=== PATIENT | female | born 1995 | race Caucasian/White ===

== ENCOUNTER 2022-07-24 19:01 | Inpatient (IN) | payer OTHER, BC ==
[2022-07-24] MEDS ORDERED: Ondansetron 4 MG/2 ML SDV IVPUSH ONE (19:31)
[2022-07-24] MEDS ORDERED: HYDROmorphone 0.5 MG/0.5 ML Syringe IVPUSH ONE ×4 (19:31→23:46)
[2022-07-25] MEDS ORDERED: Ropivacaine 0.2% PF 2 MG/ML 20 ML SDV ONE
[2022-07-25] MEDS ORDERED: HYDROmorphone 0.5 MG/0.5 ML Syringe IVPUSH ONE (00:39)
[2022-07-25] MEDS ORDERED: Ondansetron 4 MG/2 ML SDV IVPUSH ONE (00:48)
[2022-07-25] MEDS ORDERED: Acetaminophen/HYDROcodone 325-5 MG Tab PO ONE (01:22)
[2022-07-25] MEDS ORDERED: oxyCODONE 5 MG Tab PO PRN (02:37)
[2022-07-25] MEDS ORDERED: Calcium Carbonate 500 MG Tab.Chew PO PRN (02:38)
[2022-07-25] MEDS: Lactated Ringers 1,000 ML IV SCH ×2 (04:00→05:13)
[2022-07-25] MEDS ORDERED: Sodium Chloride 0.9% 10 ML Syringe FLUSH PRN (04:02)
[2022-07-25] MEDS ORDERED: Nalbuphine HCl 10 MG/ 1ML Amp IVPUSH PRN (04:02)
[2022-07-25] MEDS ORDERED: Oxytocin/Lactated Ringers 10 UNIT/1,000 ML BAG IV SCH ×2 (04:02→07:38)
[2022-07-25] MEDS ORDERED: ePHEDrine 50 MG/ML SDV IVPUSH PRN (04:12)
[2022-07-25] MEDS ORDERED: fentaNYL 100 MCG/2 ML SDV EPIDUR PRN (04:12)
[2022-07-25] MEDS ORDERED: diphenhydrAMINE 50 MG/ML SDV IVPUSH PRN (04:12)
[2022-07-25] MEDS ORDERED: Bupivacaine/fentaNYL/NS 100 ML Bag EPIDUR PRN (04:12)
[2022-07-25] MEDS ORDERED: Ondansetron 4 MG Tab.DIS PO PRN ×2 (05:00)
[2022-07-25] MEDS ORDERED: Acetaminophen/HYDROcodone 325-5 MG Tab PO PRN (05:30)
[2022-07-25] MEDS ORDERED: Hydrocortisone Acetate 25 MG Supp RECTAL PRN (07:38)
[2022-07-25] MEDS ORDERED: Benzocaine/Menthol 20%-0.5% Spray 78 GM Cannister TOP PRN (07:38)
[2022-07-25] MEDS ORDERED: Magnesium Hydroxide 400 MG/5 ML Susp 30 ML Cup PO PRN (07:38)
[2022-07-25] MEDS ORDERED: Witch Hazel Medicated Pads 40/Jar TOP PRN (07:38)
[2022-07-25] MEDS ORDERED: Sodium Chloride 0.9% 10 ML Syringe FLUSH SCH (09:00)
[2022-07-25] MEDS: Docusate Sodium 100 MG Cap PO PRN ×2 (09:18→21:08)
[2022-07-25] MEDS: Ibuprofen 600 MG Tab PO PRN ×3 (09:18→21:05)
[2022-07-25] MEDS: Prenatal Multivitamin with Calcium/Folic Acid/Iron Tab PO SCH (12:09)
[2022-07-25] MEDS: Acetaminophen/HYDROcodone 325-5 MG Tab PO PRN ×2 (12:10→18:31)
[2022-07-26] MEDS: Acetaminophen/HYDROcodone 325-5 MG Tab PO PRN ×4 (00:01→18:14)
[2022-07-26] MEDS: Ibuprofen 600 MG Tab PO PRN ×4 (03:42→21:55)
[2022-07-26] MEDS: Prenatal Multivitamin with Calcium/Folic Acid/Iron Tab PO SCH (09:44)
[2022-07-26] MEDS: Docusate Sodium 100 MG Cap PO PRN ×2 (09:46→21:55)
[2022-07-27] MEDS: Acetaminophen/HYDROcodone 325-5 MG Tab PO PRN ×3 (00:58→13:07)
[2022-07-27] MEDS: Ibuprofen 600 MG Tab PO PRN ×2 (04:00→10:22)
[2022-07-27] MEDS: Prenatal Multivitamin with Calcium/Folic Acid/Iron Tab PO SCH (10:23)
[2022-07-27] MEDS: Docusate Sodium 100 MG Cap PO PRN (10:23)
== END 2022-07-27 14:00 | disposition home or self-care (01) | DRG 560 ==
LOC: JD.ED 19:01 → JD.OB 07-25 02:10 → JD.ED 07-25 02:10 → JD.OB 07-25 02:19 → OBSVTOIN 07-25 07:20
PROVIDERS: ADMIT Obstetrics & Gynecology; ATTEND Obstetrics & Gynecology
PROC: 10E0XZZ Delivery of Products of Conception, External Approach (ICD-10-PCS; principal; 2022-07-25)
PROC: 10907ZC Drainage of Amniotic Fluid, Therapeutic from Products of Conception, Via Natural or Artificial Opening (ICD-10-PCS; 2022-07-25)
PROC: 0HQ9XZZ Repair Perineum Skin, External Approach (ICD-10-PCS; 2022-07-25)
PROC: 3E0R3BZ Introduction of Anesthetic Agent into Spinal Canal, Percutaneous Approach (ICD-10-PCS; 2022-07-25)
DX: O60.14X0 Preterm labor third trimester with preterm delivery third trimester, not applicable or unspecified (principal); Z3A.36 36 weeks gestation of pregnancy; Z37.0 Single live birth; O99.892 Other specified diseases and conditions complicating childbirth; O70.0 First degree perineal laceration during delivery; S22.059A Unspecified fracture of T5-T6 vertebra, initial encounter for closed fracture; S22.069A Unspecified fracture of T7-T8 vertebra, initial encounter for closed fracture
CPT/HCPCS: 01967; 36415; 51702; 59025; 59409; 72125; 72125-26; 72128; 72128-26; 72131; 72131-26; 85025; 86592; 86803; 86850; 86870; 86900; 86901; 96374; 96375; 96376; 99284; 99285-25; A9270-GY; J1170; J2405; J2790; J2795; J7120

== ENCOUNTER 2025-01-07 20:02 | Inpatient (IN) | payer BC ==
[2025-01-07] MEDS ORDERED: Sodium Chloride 0.9% 10 ML Syringe FLUSH PRN (20:51)
[2025-01-07] MEDS ORDERED: Lidocaine 1% 50 ML MDV INJECT PRN (20:51)
[2025-01-07] MEDS ORDERED: Nalbuphine 10 MG/1 ML Vial IVPUSH PRN (20:51)
[2025-01-07 21:11] LABS: BASOPHILS ABSOLUTE AUTO 0.1 K/mm3 (0.0-0.2); BASOPHILS PERCENT AUTO 0.4 % (0.0-1.0); EOSINOPHILS ABSOLUTE AUTO 0.1 K/mm3 (0.0-0.4); EOSINOPHILS PERCENT AUTO 0.4 % (0.0-6.0); HEMATOCRIT 33.7 % (37.0-47.0); HEMOGLOBIN 10.7 gm/dl (12.0-16.0); IMMATURE GRAN PERCENT AUTO 0.9 % (0.0-0.4); LYMPHOCYTES ABSOLUTE AUTO 3.7 K/mm3 (1.0-4.8); LYMPHOCYTES PERCENT AUTO 16.1 % (24.0-44.0); MEAN CORPUSCULAR HEMOGLOBIN 25.6 pg (28.0-32.0); MEAN CORPUSCULAR HGB CONC 31.8 g/dl (32.0-36.0); MEAN CORPUSCULAR VOLUME 80.6 fl (83.0-99.0); MEAN PLATELET VOLUME 11.1 fl (9.4-12.3); MONOCYTES ABSOLUTE AUTO 1.8 K/mm3 (0.0-0.8); MONOCYTES PERCENT AUTO 7.7 % (0.0-8.0); NEUTROPHILS ABSOLUTE AUTO 16.9 K/mm3 (1.8-7.7); NEUTROPHILS PERCENT AUTO 74.5 % (41.0-71.0); PLATELET COUNT,PLT 279 K/mm3 (150-400); RED BLOOD CELL COUNT 4.18 M/mm3 (4.10-5.30); WHITE BLOOD CELL COUNT,WBC 22.67 K/mm3 (3.9-11.3)
[2025-01-07] MEDS: Lactated Ringers 1,000 ML IV SCH (21:12)
[2025-01-07] MEDS ORDERED: diphenhydrAMINE 50 MG/ML SDV IVPUSH PRN (21:47)
[2025-01-07] MEDS ORDERED: ePHEDrine 50 MG/ML SDV IVPUSH PRN (21:47)
[2025-01-07] MEDS: fentaNYL 100 MCG/2 ML SDV EPIDUR PRN (21:53)
[2025-01-07] MEDS: Bupivacaine/fentaNYL/NS 100 ML Bag EPIDUR PRN (21:54)
[2025-01-07] MEDS: Ondansetron 4 MG/2 ML SDV IVPUSH PRN (22:48)
[2025-01-08] MEDS: Oxytocin/0.9 % Sodium Chloride 30 UNIT/500 ML BAG IV SCH ×2 (01:32→04:22)
[2025-01-08] MEDS ORDERED: Benzocaine/Menthol 20%-0.5% Spray 78 GM Cannister TOP PRN (03:31)
[2025-01-08] MEDS ORDERED: Sennosides 8.6 MG Tab PO PRN (03:31)
[2025-01-08] MEDS ORDERED: Witch Hazel Medicated Pads 40/Jar TOP PRN (03:31)
[2025-01-08] MEDS: Ibuprofen 800 MG Tab PO SCH (04:22)
[2025-01-08] MEDS: Sodium Chloride 0.9% 10 ML Syringe FLUSH SCH (04:33)
[2025-01-08] MEDS: Acetaminophen 325 MG Tab PO PRN (13:14)
[2025-01-09] MEDS: Calcium Carbonate 500 MG Tab.Chew PO ONE (04:27)
== END 2025-01-09 12:00 | disposition home or self-care (01) | DRG 560 ==
LOC: JD.OBCHECK 20:02 → JD.OB 20:09 → JD.OBCHECK 20:51 → JD.OB 21:34 → OBSVTOIN 01-08 02:56 → JD.OB 01-08 02:57
PROVIDERS: ADMIT Obstetrics & Gynecology; ATTEND Obstetrics & Gynecology
PROC: 10E0XZZ Delivery of Products of Conception, External Approach (ICD-10-PCS; principal; 2025-01-08)
PROC: 10907ZC Drainage of Amniotic Fluid, Therapeutic from Products of Conception, Via Natural or Artificial Opening (ICD-10-PCS; 2025-01-08)
PROC: 3E0R3BZ Introduction of Anesthetic Agent into Spinal Canal, Percutaneous Approach (ICD-10-PCS; 2025-01-08)
PROC: 00HU33Z Insertion of Infusion Device into Spinal Canal, Percutaneous Approach (ICD-10-PCS; 2025-01-08)
PROC: 3E0334Z Introduction of Serum, Toxoid and Vaccine into Peripheral Vein, Percutaneous Approach (ICD-10-PCS; 2025-01-08)
DX: O60.14X0 Preterm labor third trimester with preterm delivery third trimester, not applicable or unspecified (principal); Z37.0 Single live birth; O34.219 Maternal care for unspecified type scar from previous cesarean delivery; O26.893 Other specified pregnancy related conditions, third trimester; Z3A.36 36 weeks gestation of pregnancy; Z67.41 Type O blood, Rh negative
CPT/HCPCS: 01967; 36415; 51702; 59025; 59409; 85025; 85461; 86592; A9270-GY; J2405; J2791; J3010; J3490; J7120; J7999